=== PATIENT | male | born 1980 | race Caucasian/White ===

== ENCOUNTER 2017-04-06 16:06 | Emergency (ER) | payer SELFPAY ==
[~2017-04-06 16:06] MED LIST: BEN50; BENA20TA65; BENZ1TAB7; GLIM4TAB; HALO5TAB16; METF500T4; PROP10TA6; SIMV20TA; SYN2
== END 2017-04-06 16:28 | disposition left against medical advice (07) ==
LOC: E/R 16:06
DX: Z53.21 Procedure and treatment not carried out due to patient leaving prior to being seen by health care provider (principal)

== ENCOUNTER 2018-06-13 19:24 | Emergency (ER) | END 2018-06-13 23:30 | disposition home or self-care (01) ==

== ENCOUNTER 2018-11-20 20:27 | Emergency (ER) | payer MEDICARE, OTHER ==
[~2018-11-20] VITALS: Ht 175.3 cm; Wt 129.2 kg
[~2018-11-20 20:27] MED LIST changes: +CLIN300C10 PO; +IBUP-1542 PO; +METF-849; -METF500T4
[2018-11-20 20:29] VITALS: Ht 175.3 cm; Wt 129.2 kg
[2018-11-20] MEDS ORDERED: GUAI120011 PO (22:24)
[2018-11-20] MEDS ORDERED: PSEU120T12 PO (22:24)
--- NOTE | 2018-11-20 22:26 | ERD ---
ER Documentation Chief Complaint Chief Complaint congestion x5 hours. no SOB/CP/CHILDS. took nasal spray, no improvement HPI 38-year-old male is here complaining of nasal congestion for the past 1 day. No fever. No shortness of breath or cough. Tried nasal spray at home but did not help. No vomiting. ROS All systems reviewed and are negative except as per history of present illness. Medications Home Meds Active Scripts Guaifenesin (Mucinex) 1,200 Mg Tab.er.12h, 1200 MG PO DAILY, #30 TAB Prov:GO MARTINEZ PA-C 11/20/18 Pseudoephedrine Hcl (Sudafed 12 Hour) 120 Mg Tablet.sa, 120 MG PO BID, #30 Prov:GO MARTINEZ PA-C 11/20/18 Clindamycin Hcl* (Clindamycin Hcl*) 300 Mg Capsule, 300 MG PO TID for 10 Days, CAP Prov:VARSHA CABRAL CASTING FINISHER 06/13/18 Ibuprofen* (Motrin*) 600 Mg Tab, 600 MG PO Q6H PRN for PAIN AND OR ELEVATED TE MP, #30 TAB Prov:VARSHA CABRAL CASTING FINISHER 06/13/18 Reported Medications Diphenhydramine Hcl* (Benadryl*) 50 Mg Cap 07/14/10 Benztropine Mesylate* (Cogentin*) 1 Mg Tab 07/14/10 Haloperidol (Haloperidol) 5 Mg Tablet 07/14/10 Propranolol Hcl* (Propranolol Hcl*) 10 Mg Tablet 07/14/10 Glimepiride* (Glimepiride*) 4 Mg Tablet 07/14/10 Simvastatin* (Zocor*) 20 Mg Tablet 02/06/10 Metformin* (Glucophage*) 500 Mg Tab 02/06/10 Benazepril Hcl* (Lotensin*) 20 Mg Tablet 02/06/10 Levothyroxine Sodium* (Synthroid*) 200 Mcg Tablet 02/06/10 Allergies Allergies: Coded Allergies: No Known Drug Allergy (Verified Allergy, Mild, 06/13/18) PMhx/Soc History of Surgery: No Anesthesia Reaction: No Hx Neurological Disorder: No Hx Respiratory Disorders: No Hx Cardiac Disorders: Yes (htn, high cholesterol, dm) Hx Psychiatric Problems: Yes (schizoprenia) Hx Miscellaneous Medical Probl: Yes (hypothyroid) Hx Alcohol Use: No Hx Substance Use: No Hx Tobacco Use: No Smoking Status: Current some day smoker FmHx Family History: No diabetes Physical Exam Vitals Vital Signs Date Temp Pulse Resp B/P (MAP) Pulse Ox O2 O2 Flow FiO2 Time Delivery Rate 11/20/18 98.9 105 20 120/71 100 20:29 (87) Physical Exam INITIAL VITAL SIGNS: Reviewed by me GENERAL: Awake, alert and oriented x 4, well appearing, nontoxic, speaking in full sentences. No acute distress HEAD: Atraumatic NECK: Supple. No masses. Full range of motion. No meningismus. No midline tenderness. EYES: EOMI. PERRL. THROAT: No tonilar erythema or edema. No exudates. Uvula midline. No kissing tonsils. RESPIRATORY: Clear to auscultation bilaterally. Symmetric chest wall rise. No wheezing or rales. No accessory muscle use. CV: Regular rate and rhythm. No murmurs, rubs, or gallops. Procedures/MDM Patient is here with nasal congestion. He can continue to use Flonase as needed and I gave him a prescription for Mucinex and Sudafed. Patient counseled regarding my diagnostic impression and care plan. Prior to discharge all questions answered. Pt agrees with treatment plan and understands strict return precautions. Pt is instructed to follow up with primary care provider within 24- 48 hours. Precautionary instructions provided including instructions to return t o the ER if not improving or for any worsening or changing symptoms or concerns. Departure Diagnosis: Primary Impression: Nasal congestion Condition: Stable Patient Instructions: Nasal Allergies: Related Problems Additional Instructions: Call your primary care doctor TOMORROW for an appointment during the next 1-2 days.See the doctor sooner or return here if your condition worsens before your appointment time. GO MARTINEZ PA-C Nov 20, 2018 22:26
[2018-11-20] MEDS ORDERED: ACETAMINOPHEN 500 MG TAB PO STA (22:48)
[2018-11-20] MEDS ORDERED: AZIT250T PO (22:48)
[2018-11-20 22:52] VITALS: BP 137/72; PULSE 118; RESP 19
== END 2018-11-20 23:06 | disposition home or self-care (01) ==
LOC: FTE 20:27
DX: R09.81 Nasal congestion (principal); E11.9 Type 2 diabetes mellitus without complications; I10 Essential (primary) hypertension; E03.9 Hypothyroidism, unspecified; F17.210 Nicotine dependence, cigarettes, uncomplicated; Z79.84 Long term (current) use of oral hypoglycemic drugs
CPT/HCPCS: 99282

== ENCOUNTER 2019-05-28 01:35 | Emergency (ER) | payer MEDICARE, OTHER ==
[~2019-05-28] VITALS: Ht 170.2 cm; Wt 130.3 kg
[~2019-05-28 01:35] MED LIST changes: +ARIP20TA5 PO; +ATOR20TA38 PO; +AZIT250T PO; +BENA20TA4 PO; +BENZ1TAB7 PO; +GLIM4TAB PO; +GUAI120011 PO; +LEVO175T6 PO; +METF100010 PO; +PSEU120T12 PO; +RISP3TAB3 PO; +SITA25TA3 PO
[2019-05-28 01:40] VITALS: Ht 170.2 cm; Wt 130.3 kg
--- NOTE | 2019-05-28 05:00 | ERD ---
ER Documentation Chief Complaint Chief Complaint ANXIETY, BODY PAIN. HPI This is a 38-year-old male who presents to the emergency room for evaluation of suicidal ideation. The patient states he has a history of schizophrenia and is on Abilify, he states that he has been feeling upset and stressed out over the past week and he wants to buy a gun and shoot himself in the head. The patient denies any homicidal ideation and came to the ER for evaluation ROS All systems reviewed and are negative except as per history of present illness. Medications Home Meds Active Scripts Azithromycin* (Zithromax*) 250 Mg Tablet, 250 MG PO .ZPACK DIRECTED, #6 TAB TAKE 500 MG (2 TABS) THE FIRST DAY THEN 250 MG (1 TAB) DAYS 2-5 Prov:GO MARTINEZ PA-C 11/20/18 Guaifenesin (Mucinex) 1,200 Mg Tab.er.12h, 1200 MG PO DAILY, #30 TAB Prov:GO MARTINEZ PA-C 11/20/18 Pseudoephedrine Hcl (Sudafed 12 Hour) 120 Mg Tablet.sa, 120 MG PO BID, #30 Prov:GO MARTINEZ PA-C 11/20/18 Clindamycin Hcl* (Clindamycin Hcl*) 300 Mg Capsule, 300 MG PO TID for 10 Days, CAP Prov:VARSHA CABRAL COORDINATOR OF [employer]GR[employer] 06/13/18 Ibuprofen* (Motrin*) 600 Mg Tab, 600 MG PO Q6H PRN for PAIN AND OR ELEVATED TEMP, #30 TAB Prov:VARSHA CABRAL NP 06/13/18 Reported Medications Diphenhydramine Hcl* (Benadryl*) 50 Mg Cap 07/14/10 Benztropine Mesylate* (Cogentin*) 1 Mg Tab 07/14/10 Haloperidol (Haloperidol) 5 Mg Tablet 07/14/10 Propranolol Hcl* (Propranolol Hcl*) 10 Mg Tablet 07/14/10 Glimepiride* (Glimepiride*) 4 Mg Tablet 07/14/10 Simvastatin* (Zocor*) 20 Mg Tablet 02/06/10 Metformin* (Glucophage*) 500 Mg Tab 02/06/10 Benazepril Hcl* (Lotensin*) 20 Mg Tablet 02/06/10 Levothyroxine Sodium* (Synthroid*) 200 Mcg Tablet 02/06/10 Allergies Allergies: Coded Allergies: No Known Drug Allergy (Verified Allergy, Mild, 06/13/18) PMhx/Soc History of Surgery: No Anesthesia Reaction: No Hx Neurological Disorder: No Hx Respiratory Disorders: No Hx Cardiac Disorders: Yes (htn, high cholesterol, dm) Hx Psychiatric Problems: Yes (schizoprenia) Hx Miscellaneous Medical Probl: Yes (hypothyroid) Hx Alcohol Use: No Hx Substance Use: No Hx Tobacco Use: No Smoking Status: Never smoker Physical Exam Vitals Vital Signs Date Temp Pulse Resp B/P (MAP) Pulse Ox O2 O2 Flow FiO2 Time Delivery Rate 05/28/19 97.5 100 17 143/93 97 01:40 (110) Physical Exam INITIAL VITAL SIGNS: Reviewed by me GENERAL: The patient is a disheveled appearance, HEENT: Pupils equal, round, and reactive to light. EOMI. There is no scleral icterus. NECK: C-spine is soft and supple, there is no meningismus. There is no cervical lymphadenopathy. LUNGS: Clear to auscultation bilaterally. There are no rales, wheezes or rhonchi. HEART: Regular rate and rhythm, no murmurs, clicks, rubs or gallops. ABDOMEN: Soft, non-tender, non-distended. There are bowel sounds in all four quadrants. No rebound or guarding. EXTREMITIES: There is no peripheral cyanosis or edema. No focal swelling or erythema. NEUROLOGICAL: The patient moves all four extremities with 5/5 strength. Cranial nerves II - XII are intact. Normal gait. Alert and oriented SKIN: There is no apparent rash or petechiae. HEME/LYMPHATIC: There is no evidence of excessive bruising or lymphedema. PSYCHIATRIC: The patient does not appear anxious or depressed. Result Diagram: 05/28/1931105/28/19 031 Results 24 hrs Laboratory Tests Test 05/28/19 03:12 05/28/19 03:31 White Blood Count 18.2 10^3/ul Red Blood Count 5.52 10^6/ul Hemoglobin 14.3 g/dl Hematocrit 45.4 % Mean Corpuscular Volume 82.2 fl Mean Corpuscular Hemoglobin 25.9 pg Mean Corpuscular Hemoglobin Concent 31.5 g/dl Red Cell Distribution Width 14.0 % Platelet Count 284 10^3/UL Mean Platelet Volume 11.0 fl Immature Granulocytes % 0.800 % Neutrophils % 73.9 % Lymphocytes % 17.8 % Monocytes % 5.1 % Eosinophils % 1.9 % Basophils % 0.5 % Nucleated Red Blood Cells % 0.0 /100WBC Immature Granulocytes # 0.140 10^3/ul Neutrophils # 13.5 10^3/ul Lymphocytes # 3.2 10^3/ul Monocytes # 0.9 10^3/ul Eosinophils # 0.3 10^3/ul Basophils # 0.1 10^3/ul Nucleated Red Blood Cells # 0.0 10^3/ul Sodium Level 141 mmol/L Potassium Level 3.6 mmol/L Chloride Level 106 mmol/L Carbon Dioxide Level 24 mmol/L Anion Gap 11 Blood Urea Nitrogen 9 mg/dl Creatinine 0.90 mg/dl Est Glomerular Filtrat Rate mL/min > 60 mL/min Glucose Level 119 mg/dl Calcium Level 9.4 mg/dl Total Bilirubin 0.4 mg/dl Direct Bilirubin 0.00 mg/dl Indirect Bilirubin 0.4 mg/dl Aspartate Amino Transf (AST/SGOT) 27 IU/L Alanine Aminotransferase (ALT/SGPT) 34 IU/L Alkaline Phosphatase 131 IU/L Total Protein 7.7 g/dl Albumin 4.1 g/dl Globulin 3.60 g/dl Albumin/Globulin Ratio 1.13 Salicylates Level Pending Acetaminophen Level < 10.0 ug/ml Ethyl Alcohol Level < 10.0 mg/dl Urine Color YELLOW Urine Clarity CLEAR Urine pH 6.0 Urine Specific [place] 1.026 Urine Ketones NEGATIVE mg/dL Urine Nitrite NEGATIVE mg/dL Urine Bilirubin NEGATIVE mg/dL Urine Urobilinogen 1+ mg/dL Urine Leukocyte Esterase NEGATIVE Robina/ul Urine Hemoglobin NEGATIVE mg/dL Urine Glucose NEGATIVE mg/dL Urine Total Protein NEGATIVE mg/dl Urine Opiates Screen NEGATIVE Urine Barbiturates NEGATIVE Urine Amphetamines Screen NEGATIVE Urine Benzodiazepines Screen NEGATIVE Urine Cocaine Screen NEGATIVE Urine Cannabinoids POSITIVE Procedures/MDM This 38-year-old male presents to the ER for evaluation of suicidal ideation. The patient does have underlying psychiatric issues and is on Abilify. The patient stated he wants to take a gun and shoot himself in the head. Lab work was obtained and shows a leukocytosis. The patient has no source of infection and chest x-ray is clear. The patient is been medically cleared and will need to be evaluated by tele-psych to determine whether or not this patient will need inpatient psychiatric hold. Patient presents with symptomatology consistent with the decompensation of previously diagnosed psychiatric disease. Based on history, physical exam and appropriate lab tests, I appreciate no evidence of significant life-threatening injury or illness that includes a psychiatric hospitalization. Patient is thus "medically clear" for psychiatric admission. In regards to the psychiatric complaints, this patient has clear evidence of high risk psychiatric symptoms with significant risk for decompensation, thus requiring admission to the hospital for stabilization. Departure Diagnosis: Primary Impression: Suicidal ideation Condition: Stable DARREN CASTRO DO May 28, 2019 05:00
--- NOTE | 2019-05-28 10:11 | PSY ---
Date/Time of Note Date/Time of Note DATE: 05/28/19 TIME: 10:05 Psychiatric Subjective Eval Subjective Evaluation Patient location: emergency Chief Complaint: ANXIETY, BODY PAIN. History of present illness Pt is 38 yo male with hx schizophrenia BIB EMS c/o body aches after he called 911. Pt also made a suicidal statement,saying he wants to buy a gun and shoot himself. However, pt denies SI now. He had no access to firearms. he denies Any HI. He reports AH, derogatory. + paranoia. Pt is on ABilify and rips epridone, doesn't know the doses. Past psychiatric history prior inpt Hospitalization: yes Family History denies Medical history Problems Medical Problems: (1) Abscess Status: Acute (2) Nasal congestion Status: Acute (3) Suicidal ideation Status: Acute Allergies: Coded Allergies: No Known Drug Allergy (Verified Allergy, Mild, 06/13/18) Substance Abuse Substance use: No known substance abuse Social History Marital status: single Level of education: 11th gr DPA/Conservatorship: No Occupation/Assisted: on ssi, lives with family Psychiatric Objective Eval Review of Systems: Review of Systems: Not Applicable Physical Examination: Physical Examination: Not Applicable Sleep: Adequate Appetite: Adequate Mental Status Examination: Appearance: Disheveled Psychomotor Activity: Normal Behavior: Cooperative Speech: Clear AFFECT: Appropriate, Constricted Mood: Anxious Though Process: Linear Thought Content: Hallucinations Suicidal: Yes Homicidal: No Orientation: x3 Cognition: Alert Insight: Impared Judgement: Impared Laboratory Results Laboratory Tests Test 05/28/19 03:12 05/28/19 03:31 White Blood Count 18.2 10^3/ul Red Blood Count 5.52 10^6/ul Hemoglobin 14.3 g/dl Hematocrit 45.4 % Mean Corpuscular Volume 82.2 fl Mean Corpuscular Hemoglobin 25.9 pg Mean Corpuscular Hemoglobin Concent 31.5 g/dl Red Cell Distribution Width 14.0 % Platelet Count 284 10^3/UL Mean Platelet Volume 11.0 fl Immature Granulocytes % 0.800 % Neutrophils % 73.9 % Lymphocytes % 17.8 % Monocytes % 5.1 % Eosinophils % 1.9 % Basophils % 0.5 % Nucleated Red Blood Cells % 0.0 /100WBC Immature Granulocytes # 0.140 10^3/ul Neutrophils # 13.5 10^3/ul Lymphocytes # 3.2 10^3/ul Monocytes # 0.9 10^3/ul Eosinophils # 0.3 10^3/ul Basophils # 0.1 10^3/ul Nucleated Red Blood Cells # 0.0 10^3/ul Sodium Level 141 mmol/L Potassium Level 3.6 mmol/L Chloride Level 106 mmol/L Carbon Dioxide Level 24 mmol/L Anion Gap 11 Blood Urea Nitrogen 9 mg/dl Creatinine 0.90 mg/dl Est Glomerular Filtrat Rate mL/min > 60 mL/min Glucose Level 119 mg/dl Calcium Level 9.4 mg/dl Total Bilirubin 0.4 mg/dl Direct Bilirubin 0.00 mg/dl Indirect Bilirubin 0.4 mg/dl Aspartate Amino Transf (AST/SGOT) 27 IU/L Alanine Aminotransferase (ALT/SGPT) 34 IU/L Alkaline Phosphatase 131 IU/L Creatine Kinase 127 IU/L Total Protein 7.7 g/dl Albumin 4.1 g/dl Globulin 3.60 g/dl Albumin/Globulin Ratio 1.13 Salicylates Level < 1.0 mg/dl Acetaminophen Level < 10.0 ug/ml Ethyl Alcohol Level < 10.0 mg/dl Urine Color YELLOW Urine Clarity CLEAR Urine pH 6.0 Urine Specific [place] 1.026 Urine Ketones NEGATIVE mg/dL Urine Nitrite NEGATIVE mg/dL Urine Bilirubin NEGATIVE mg/dL Urine Urobilinogen 1+ mg/dL Urine Leukocyte Esterase NEGATIVE Robina/ul Urine Hemoglobin NEGATIVE mg/dL Urine Glucose NEGATIVE mg/dL Urine Total Protein NEGATIVE mg/dl Urine Opiates Screen NEGATIVE Urine Barbiturates NEGATIVE Urine Amphetamines Screen NEGATIVE Urine Benzodiazepines Screen NEGATIVE Urine Cocaine Screen NEGATIVE Urine Cannabinoids POSITIVE Assessment and Plan Assessment/Diagnosis Diagnosis PARANOID SCHIZOPHRENIA Recommendation/Plan Medication Management ABIIFY 20 MG POQD COGENTIN 1 MG PO TID Discharge Disposition: Psychiatric inpatient Legal Status: Place involuntary hold ROB HARRISON MD May 28, 2019 10:11
[2019-05-28] MEDS ORDERED: AMOXICILLIN/CLAV 875 MG TAB PO ONE (13:30)
[2019-05-28 16:40] VITALS: BP 88/58; PULSE 83; RESP 21
== END 2019-05-28 16:50 ==
LOC: FTE 01:35 → E/R 16:50
DX: R45.851 Suicidal ideations (principal); I10 Essential (primary) hypertension; E11.9 Type 2 diabetes mellitus without complications; Z79.84 Long term (current) use of oral hypoglycemic drugs
CPT/HCPCS: 36415; 71045; 80053; 80307; 81003; 82550; 85025